=== PATIENT | female | born 1970 | race Caucasian/White ===

== ENCOUNTER 2019-06-06 16:22 | Emergency (ER) | payer BC ==
[2019-06-06 16:36] VITALS: BP 115/74
--- NOTE | 2019-06-06 16:39 | UC ---
Lower Extremity/Ankle HPI - HPI Summary HPI Summary: 48 yo female presents with LEFT foot pain. She tells me that about 1.5 months ago she noticed some left foot pain at her 2nd and 3rd MTs. She saw her superintendent communications, as she has had issues with plantar fasciitis in the past, and was given shoe inserts. She used the shoe insert for 3-4 weeks with no relief. Yesterday she stubbed her foot while wearing shoes and has had increased pain since that time. She has not seen her superintendent communications again. Denies numbness or tingling. Pain better with rest and worse with weight bearing. - History of Current Complaint Stated Complaint: LT FOOT COMPLAINT Time Seen by Provider: 06/06/19 16:28 Hx Obtained From: Patient Hx Last Menstrual Period: 2009 Onset/Duration: Gradual Onset Severity Initially: Moderate Severity Currently: Moderate Pain Intensity: 7 Pain Scale Used: 0-10 Numeric Aggravating Factor(s): Standing, Ambulation Alleviating Factor(s): Rest Able to Bear Weight: Yes - Allergies/Home Medications Allergies/Adverse Reactions: Allergies Allergy/AdvReac Type Severity Reaction Status Date / Time amoxicillin Allergy Hives Verified 06/06/19 16:37 ceftriaxone [From Rocephin] Allergy Rash Verified 06/06/19 16:37 seasonal Allergy Difficulty Uncoded 06/06/19 16:37 Breathing Home Medications: Home Medications Ibuprofen TAB* [Motrin TAB*] 400 mg PO Q6H PRN 06/06/19 [History Confirmed 06/06] PMH/Surg Hx/FS Hx/Imm Hx Respiratory History: Asthma - Surgical History Surgical History: None Surgery Procedure, Year, and Place: oopherectomy b/l - Family History Known Family History: Positive: Hypertension, Respiratory Disease - Social History Occupation: Employed Full-time Lives: With Family Alcohol Use: Rare Substance Use Type: None Smoking Status (MU): Never Smoked Tobacco Review of Systems All Other Systems Reviewed And Are Negative: No Constitutional: Positive: Negative Skin: Positive: Negative Respiratory: Positive: Negative Cardiovascular: Positive: Negative Neurovascular: Positive: Negative Musculoskeletal: Positive: Other: - Left foot pain Neurological: Positive: Negative Psychological: Positive: Negative Physical Exam - Summary Physical Exam Summary: GENERAL: NAD. WDWN. No pain distress. SKIN: No rashes, sores, lesions, or open wounds. CHEST: No accessory muscle use. Breathing comfortably and in no distress. CV: Pulses intact PT and DP. Cap refill <2seconds MSK: LEFT FOOT: Mild TTP about dorsal aspect of 2nd and 3rd distal MTs. Strength 5/5. No edema or obvious bony deformities. FROM all toes. NEURO: Alert. Sensations intact and symmetric B/L LEs PSYCH: Age appropriate behavior. Triage Information Reviewed: Yes Vital Signs Reviewed: Yes Diagnostics - Radiology Foot XR Radiology Interpretation Completed By: Radiologist Summary of Radiographic Findings: IMPRESSION: NO ACUTE OSSEOUS INJURY. IF SYMPTOMS PERSIST, RECOMMEND REPEAT IMAGING Lower Extremity Course/Dx - Course Course Of Treatment: XR as above. Suspect tendinitis. Pt declined post op shoe or CAM boot today and she prefers to f/u with her superintendent communications. - Differential Dx/Diagnosis Provider Diagnosis: Foot pain Discharge ED - Sign-Out/Discharge Documenting (check all that apply): Patient Departure All imaging exams completed and their final reports reviewed: Yes - Discharge Plan Condition: Stable Disposition: HOME Patient Education Materials: Tendinitis (ED) Referrals: Ness Rios MD [Primary Care Provider] - Additional Instructions: If you develop a fever, shortness of breath, chest pain, new or worsening symptoms - please call your PCP or go to the ED immediately. The X-rays of your foot are normal. I recommend that you see your superintendent communications again for further evaluation. - Billing Disposition and Condition Condition: STABLE Disposition: Home
== END 2019-06-06 17:17 | disposition home or self-care (01) ==
LOC: UCCORT 16:22
DX: M79.672 Pain in left foot (principal); J45.909 Unspecified asthma, uncomplicated; Z88.0 Allergy status to penicillin; Z88.1 Allergy status to other antibiotic agents; Z91.09 Other allergy status, other than to drugs and biological substances
CPT/HCPCS: 99211; G0463